=== PATIENT | female | born 1940 | race Caucasian/White ===

== ENCOUNTER → 2017-10-10 | Outpatient (CLI) | payer OTHER ==
[~2017-10-10] MED LIST: ACID REDUCER20 MG PO; ADVIL PM CAPLE1 EACH PO; ALEVE220 M1 PO; ARTHROTEC EC 51 EACH PO; ASPIRIN325 PO; ATENOLOL 50MG T50 M1 PO; CETERIZINE PO; COUMADIN7.5 MG PO; DICLOFENAC SOD50 MG PO; DILTIAZEM ER180 M1 PO; FISH OIL 1,001000 M2 PO; FLECAINIDE ACET50 M1 PO; LORATIDINE 10 M10 M1 PO; MELATONIN3 MG PO; MELATONIN5 M1 PO; MISOPROSTOL 2200 MC1 PO; NABUMETONE 500500 M1 PO; NABUMETONE 750750 M1 PO; NASONEX17 GM NS; PROBIOTIC1 EAC1 PO; SINGULAIR 10 MG10 M1 PO; STOOL SOFTENER1 EAC2 PO; TRAMADOL 50 MG50 MG PO
--- NOTE | ~2017-10-10 | 2DMMODE ---
[facility] [address] [place] [address] 2 D/M-MODE ECHOCARDIOGRAM Name: JENY REDMOND Slick Room #: REG [facility]#: [id number] Admission: 10/10/17 Attend Phys: Ariel Love Discharge: Date of : 44 Date of Service: 10/10/17 1227 Report #: [id number] THIS REPORT FOR: //name// APPROVED REPORT Study performed: 10/10/2017 11:05:55 EXAM: Comprehensive 2D, Doppler, and color-flow Echocardiogram Patient Location: Echo lab, outpatient Status: routine BSA: 1.95 HR: 84 bpm BP: 128/86 mmHg Rhythm: NSR Other Information Study Quality: Good Indications Atrial Fibrillation Pacemaker 2D Dimensions LVEF(%): 45.00 (>50%) IVSd: 11.96 (7-11mm) LVOT Diam: 18.73 (18-24mm) LVDd: 43.37 mm PWd: 12.06 (7-11mm) Ascending Ao: 31.92 (22-36mm) LVDs: 34.14 (25-40mm) Left Atrium: 39.07 (27-40mm) Aortic Root: 28.33 mm LV Single Plane 4CH: 45.88 % LV Single Plane 2CH: 46.03 % Cameron's LVEF: 45.96 % Biplane EF: 46.3 % Volumes Left Atrial Volume (Systole) Single Plane 4CH: 44.03 mL Single Plane 2CH: 45.60 mL LA ESV Index: 26.00 mL/m2 Aortic Valve AoV Peak Clay.: 1.35 m/s AO Peak Gr.: 7.60 mmHg LVOT Max P.24 mmHg LVOT Max V: 0.90 m/s ARLEEN Vmax: 1.83 cm2 [facility] [employer] [place] [address] 2 D/M-MODE ECHOCARDIOGRAM Name: JENY REDMOND [id number] Admission: 10/10/17 [facility]end [facility]: [facility] Dis[facility]: Date of : 44 Date of Service: 10/10/17 1227 Report #: [id number] Mitral Valve E/A Ratio: 0.9 MV Decel. Time: 284.25 ms MV E Max Clay.: 0.69 m/s MV A Clay.: 0.74 m/s MV PHT: 82.43 ms IVRT: 55.36 ms TDI E/Lateral E': 17.25 E/Medial E': 23.00 Medial E' Clay.: 0.03 m/s Lateral E' Clay.: 0.04 m/s Pulmonary Valve PV Peak Clay.: 0.80 m/s PV Peak Gr.: 2.56 mmHg Pulmonary Vein P Vein S: 0.50 m/s P Vein A: 0.22 m/s P Vein D: 0.37 m/s P Vein A Dur.: 143.0 msec P Vein S/D Ratio: 1.35 Tricuspid Valve TR Peak Clay.: 2.38 m/s RAP Estimate: 7.00 mmHg TR Peak Gr.: 22.74 mmHg PA Pressure: 30.00 mmHg Left Ventricle The left ventricle is normal size. There is normal LV segmental wall motion. Mild concentric left ventricular hypertrophy. Left ventricular systolic function is at lower limits of normal LVEF is 45-50%. Discordant septal motion probably from RV pacing Grade I - abnormal relaxation pattern. Right Ventricle The right ventricle is normal size. The right ventricular systolic function is normal. Atria The left atrium size is normal. The right atrium size is normal. Aortic Valve The aortic valve is normal in structure. Trace aortic regurgitation. There is no aortic valvular stenosis. [facility] [address] [place] [address] 2 D/M-MODE ECHOCARDIOGRAM Name: JENY REDMOND Room #: REG [facility]#: [id number] Admission: 10/10/17 Attend Phys: Ariel Love Discharge: Date of : 44 Date of Service: 10/10/17 1227 Report #: [id number] Mitral Valve The mitral valve is normal in structure. Mild mitral regurgitation. No evidence of mitral valve stenosis. Tricuspid Valve The tricuspid valve is normal in structure. Moderate tricuspid regurgitation. Pulmonary artery pressure is 30 mmHg. Pulmonic Valve The pulmonary valve is normal in structure. Trace pulmonic regurgitation. Great Vessels The aortic root is normal in size. IVC is normal in size and collapses with >50% inspiration Pericardium There is no pericardial effusion. <Conclusion> Left ventricular systolic function is at lower limits of normal LVEF is 45-50%. Discordant septal motion probably from RV pacing Grade I diastolic dysfunction The aortic valve is normal in structure, no stenosis. Trace aortic regurgitation. The mitral valve is normal in structure. Mild mitral regurgitation. Moderate tricuspid regurgitation. Pulmonary artery pressure is 30 mmHg. There is no pericardial effusion. <ELECTRONICALLY SIGNED> By: Ty Choi MD, FACC 10/10/171226 26 26 yT Choi MD, FACC /INF
== END ==
LOC: CV 07:55
DX: I08.1 Rheumatic disorders of both mitral and tricuspid valves (principal); I48.91 Unspecified atrial fibrillation; Z95.0 Presence of cardiac pacemaker

== ENCOUNTER → 2018-01-19 | Outpatient (CLI) | payer OTHER ==
[~2018-01-19] VITALS: Ht 165.1 cm; Wt 92.4 kg
--- NOTE | ~2018-01-19 | HPC ---
[facility] [address] [place] [address] PAIN MANAGEMENT CONSULTATION Name: JENY REDMOND [id number] Admission: 01/19/18 Attend Phys: Florentin Nava MD Discharge: Date of : 44 Report #: [id number] THIS REPORT FOR: //name// CC: Florentin Gilbert MD DATE OF SERVICE: 01/19/2018 Followup visit for spinal stenosis L4-L5, L5-S1 and lumbar radiculopathy. The patient returns to pain clinic today in followup. Last seen in September. She receives an intermittent epidural injections receiving no more than 3 injections per year over the last 3-4 years for her spinal generated pain. Today, she reports pain is a bit more into the left hip and leg. Description, however, sounds much more like arthritis. She has pain radiating into the groin. She has pain with internal and external rotation. Has pain lying flat on her back or on her left side. X-rays are reviewed. No hip films are available, but she does have severe spinal stenosis at L3-L4 and L4-L5 with foraminal narrowing. There is a disk extrusion at L2-L3 as well with possible mass effect on the L3 nerve root within the thecal sac on the left, which could provide some symptoms consistent with her groin pain. PQRS review shows that she does have osteoarthritis symptoms and a history of arthritis of the hands. She does not utilize opioid medication and has therefore not completed our protocol. She uses nonsteroidal anti-inflammatory drugs for pain, which were discussed below. MEDICATIONS: Reviewed and reconciled including recent changes. ALLERGIES: TO PROCAINE AND PENICILLIN. She is not a fall risk and has not fallen in the last 3 months. She is not on blood thinner. She does have a pacemaker and cannot have an MRI. SOCIAL HISTORY: She denies use of tobacco and alcohol. PHYSICAL EXAMINATION: VITAL SIGNS: Blood pressure is 149/75, heart rate is 72. She independently moves from sitting to standing position. She can do so without using her arms to push. CARDIAC: Regular. CHEST: Clear. MUSCULOSKELETAL: Spine is nontender. Some pain with forward flexion and [facility] [address] [place] [address] PAIN MANAGEMENT CONSULTATION Name: JENY REDMOND Room #: REG [facility].#: [id number] Admission: 01/19/18 Attend Phys: Florentin Nava MD Discharge: Date of : 44 Report #: [id number] extension. Examination of the hips reveals good range of motion on the right without pain. Both internal and external rotation and hip flexion on the left reproduces symptoms radiating into the groin and the gluteal region. Straight leg raising also reproduces radicular symptoms into the ipsilateral leg on each side. Sensation is intact. Strength is 5+/5 bilaterally in the lower extremities throughout. Deep tendon reflexes are absent in knees and ankles. IMPRESSION: 1. Lumbar radiculopathy secondary to spinal stenosis and degenerative disk disease at multiple levels. 2. Probable osteoarthritis of the left hip. Spot films in the x-ray room today confirmed some spurring. If pain worsens, she should be followed up by an orthopedic surgeon. PROCEDURE: Lumbar epidural injection under fluoroscopic guidance. PROCEDURE NOTE: She was taken to fluoroscopic suite, placed prone, skin prepped with ChloraPrep. Skin anesthetized over the L4-L5 interspace. A 20-gauge Tuohy epidural needle advanced in the epidural space with loss of resistance. There was no blood or CSF aspirated. 1 mL of Omnipaque injected. Good spread of dye observed followed by 3 mL of 0.5% lidocaine mixed with 80 mg of triamcinolone. She tolerated the procedure well and was observed for 45 minutes and discharged. Follow up as needed. By: 1240 [id number] Florentin Nava MD /nt
[2018-01-19 10:36] VITALS: BP 140/80
== END | disposition home or self-care (01) ==
LOC: PAIN 07:19
DX: M54.16 Radiculopathy, lumbar region (principal); M48.061 Spinal stenosis, lumbar region without neurogenic claudication; M16.12 Unilateral primary osteoarthritis, left hip; Z88.8 Allergy status to other drugs, medicaments and biological substances; Z88.0 Allergy status to penicillin

== ENCOUNTER → 2018-03-17 | Outpatient (CLI) | payer OTHER | LOC: RAD 13:18 → NUC 13:18 | DX: Z12.31 Encounter for screening mammogram for malignant neoplasm of breast (principal); M85.88 Other specified disorders of bone density and structure, other site; Z78.0 Asymptomatic menopausal state ==

== ENCOUNTER → 2018-05-08 | Outpatient (CLI) | payer OTHER ==
[2018-05-08 09:59] LABS: APTT 25.4 Seconds (24.5-32.8); PROTIME 9.6 Seconds (9.3-11.4)
== END | disposition home or self-care (01) ==
LOC: RAD 08:14
PROVIDERS: Radiology Diagnostic Radiology
DX: M48.061 Spinal stenosis, lumbar region without neurogenic claudication (principal); Z79.899 Other long term (current) drug therapy; Z98.890 Other specified postprocedural states; Z88.0 Allergy status to penicillin

== ENCOUNTER → 2019-03-09 | Outpatient (CLI) | payer OTHER | LOC: RAD 13:31 | DX: Z01.818 Encounter for other preprocedural examination (principal); I51.7 Cardiomegaly; Z95.0 Presence of cardiac pacemaker ==

== ENCOUNTER → 2019-04-06 | Outpatient (CLI) | payer OTHER ==
[~2019-04-06] VITALS: Ht 160 cm; Wt 92.1 kg
[~2019-04-06] MED LIST changes: +ASA5UEC PO; +ELIQUIS5 MG PO; +FLONASE 0.05%50 MCG NASAL; +NEURONTIN 300300 M1 PO
[2019-04-06 07:16] VITALS: BP 135/72
[2019-04-06 08:22] LABS: HEMATOCRIT 38.9 % (37.0-47.0); MCH 29.8 pg (26.0-34.0); MCHC 33.3 g/dL (28.0-37.0); MCV 89.2 fL (80.0-100.0); RBC 4.36 mil/uL (4.20-5.00); RDW 13.5 % (10.5-14.5); WBC 4.1 thou/uL (4.0-11.0)
[2019-04-06 08:30] LABS: ANION GAP 9 mmol/L (7-16); BUN 23 mg/dL (7-18); CALCIUM 9.7 mg/dL (8.5-10.1); CHLORIDE 106 mmol/L (98-107); CO2 26 mmol/L (21-32); CREATININE 1.3 mg/dL (0.6-1.0); GLUCOSE 108 mg/dL (74-106); POTASSIUM 4.1 mmol/L (3.5-5.1); SODIUM 141 mmol/L (136-145)
[2019-04-06 08:36] LABS: CHOLESTEROL 234 mg/dL (<200); HDL CHOLESTEROL 54 mg/dL (>40); LDL CHOLESTEROL 163 mg/dL (<100); TC:HDL 4.3 Ratio (Not establshd); TRIGLYCERIDE 87 mg/dL (<150); VLDL 17 mg/dL (<40)
--- NOTE | 2019-04-06 17:10 | CATHLAB ---
[facility] [place] [place] [address] INVASIVE PROCEDURE REPORT Name: JENY REDMOND Room #: REG [facility]#: [id number] ������������� Admission: 04/06/19 ������������� Attend Phys: Andrea Ortiz MD Discharge: ��� ������������� ��� Date of : 44 Date of Service: 04/06/19 1710 �� Report #: [id number] �������� ��������������������������������������������[id number] THIS REPORT FOR: //name// APPROVED REPORT Study performed: 04/06/2019 09:52:35 Patient Details The patient is a 78 year-old female Event Personnel Andrea Ortiz Compliance Technician, Neri Owusu RN RN, Roxana Pollock RN RN, Dieter Dye RTLamine Lining Parts Sewer, Lennie Keenan CARGO SUPERVISOR Scrub, Evie Bennett Monitor Procedures Performed Left Heart Cath w/or w/o Coronaries [id number] [facility] Indication Positive stress test, Pre-op clearance Risk Factors Hypercholesterolemia, Hypertension Procedure Narrative The Right Groin^ was infiltrated with subcutaneous anesthesia. A PINNACLE 4FR Sheath #[id number] sheath was inserted into the RFA^. Coronary angiography was performed using coronary diagnostic catheters. The right coronary system was accessed and visualized with a JR4 catheter. The left coronary system was accessed and visualized with a JL4 catheter. The left ventricle was accessed and visualized with a PIGTAIL catheter. Hemostasis was obtained with manual pressure following sheath removal without any complications. The patient tolerated the procedure well and there were no complications associated with the procedure. There was no hematoma. Intraoperative Conscious Sedation Sedation start time: 946 Case end Time: 1007 Fentanyl 100 mcg Versed 2 mg Fluoro Time: 1.90 minutes Dose: DAP 4230.00 cGycm2 691 mGy Contrast Type and Amount: Omnipaque [address] [facility] [place] [address] INVASIVE PROCEDURE REPORT Name: JENY REDMOND Room #: REG [facility]#: [id number] ������������� Admission: 04/06/19 ������������� Attend Phys: Andrea Ortiz MD Discharge: ��� ������������� ��� Date of : 44 Date of Service: 04/06/19 1710 �� Report #: [id number] �������� ��������������������������������������������[id number] Coronary Angiography The patient's coronary anatomy is co- dominant. Diagnostic Cath Left Main This is a patent vessel, with no flow-limiting lesions. LAD This is a moderate size caliber vessel, traversing the anterior wall and wrapping around the apex. There is mild disease in the proximal segment, 20%. Diagonal 1 This is a patent vessel, with no flow-limiting lesions. Circumflex This is a codominant vessel, patent with no flow-limiting lesions. OM1 This is a patent vessel, with no flow-limiting lesions. OM2 This is a patent vessel, with no flow-limiting lesions. Right Coronary This is a patent vessel, with no flow-limiting lesions. R PDA This is a patent vessel, with no flow-limiting lesions. Left Ventriculography The left ventricle is normal in size with decreased contractility. The left ventricular ejection fraction is estimated to be 45%. Hemodynamics The aortic pressure is 134/74 mmHg with a mean of mmHg. The left ventricular pressure is 133/12 mmHg with a mean of mmHg. The left ventricular end diastolic pressure is 16 mmHg. Conclusion 1. Mild disease in the LAD. 2. Mild cardiomyopathy. 3. Recommend aggressive risk factor management. ��������������������������������������������� <ELECTRONICALLY SIGNED> ���������������������������������������� By: Andrea Ortiz MD ��������������������������������������������� 04/06/191709 09 09 Andrea Ortiz MD /INF
--- NOTE | 2019-04-07 08:10 | EKG ---
[place] [address] [facility] [place] [address] ELECTROCARDIOGRAM REPORT Name: JENY REDMOND Room #: REG CLI [facility]#: [id number] ������������������ Admission: 04/06/19 ������������������ Attend Phys: Andrea Ortiz MD Discharge: ������������������ Date of : 44 Report #: [id number] ����������������������������������������������������������������� [id number] THIS REPORT FOR: //name// [facility] Test Date: 2019-04-06 Test Time: 08:16:39 Pat Name: JENY REDMOND Department: Room: Gender: F Healthcare Analyst: FABIANA : 1940 Requested By: Andrea Ortiz Order Number: [id number] MD: Ty Choi Measurements Intervals [place] Rate: 65 P: CO: 168 QRS: -30 QRSD: 157 T: 71 QT: 464 QTc: 483 Interpretive Statements Atrial-paced complexes Left bundle branch block Compared to ECG 10/29/2008 07:05:08 Left bundle-branch block now present Electronically Signed On 04-07-2019 8:10:26 CDT by Ty Choi [email or web address] ��������������������������������������������� <ELECTRONICALLY SIGNED> ���������������������������������������� By: Ty Choi MD, [facility] ��������������������������������������������� 04/07/1910 5 5 Ty Choi MD, [facility] /EPI
== END | disposition home or self-care (01) ==
LOC: CATH 06:39
PROVIDERS: Internal Medicine Cardiovascular Disease
DX: I25.10 Atherosclerotic heart disease of native coronary artery without angina pectoris (principal); I42.9 Cardiomyopathy, unspecified; I10 Essential (primary) hypertension; E78.00 Pure hypercholesterolemia, unspecified; I48.91 Unspecified atrial fibrillation; Z82.49 Family history of ischemic heart disease and other diseases of the circulatory system; Z95.0 Presence of cardiac pacemaker; Z79.01 Long term (current) use of anticoagulants; Z79.899 Other long term (current) drug therapy; Z98.890 Other specified postprocedural states; Z88.0 Allergy status to penicillin; Z88.8 Allergy status to other drugs, medicaments and biological substances; Z79.82 Long term (current) use of aspirin

== ENCOUNTER → 2019-04-27 | Outpatient (CLI) | payer OTHER ==
--- NOTE | 2019-04-27 15:10 | 2DMMODE ---
[facility] [place] [address] 2 D/M-MODE ECHOCARDIOGRAM Name: JENY REDMONDN Room #: REG [facility]#: [id number] ������������� Admission: 04/27/19 ������������� Attend Phys: Ariel Love Discharge: ��� ������������� ��� Date of : 44 Date of Service: 04/27/19 1510 �� Report #: [id number] �������� ��������������������������������������������[id number] THIS REPORT FOR: //name// APPROVED REPORT Study performed: 04/27/2019 14:00:07 EXAM: Comprehensive 2D, Doppler, and color-flow Echocardiogram Patient Location: Out-Patient Status: routine BSA: 1.93 HR: 61 bpm BP: 124/70 mmHg Rhythm: NSR Other Information Study Quality: Good Indications Dyspnea Hx: Pacemaker, Afib. 2D Dimensions RVDd: 35.73 mm IVSd: 9.57 (7-11mm) LVOT Diam: 20.45 (18-24mm) LVDd: 48.30 mm PWd: 10.10 (7-11mm) Ascending Ao: 34.57 (22-36mm) LVDs: 39.91 (25-40mm) Aortic Root: 33.68 mm Volumes Left Atrial Volume (Systole) Single Plane 4CH: 60.70 mL Single Plane 2CH: 65.72 mL LA ESV Index: 54.00 mL/m2 Aortic Valve AoV Peak Clay.: 1.40 m/s AO Peak Gr.: 7.89 mmHg LVOT Max P.57 mmHg LVOT Max V: 0.80 m/s ARLEEN Vmax: 1.88 cm2 Mitral Valve E/A Ratio: 1.3 MV Decel. Time: 197.29 ms [facility] [address] [place] [address] 2 D/M-MODE ECHOCARDIOGRAM Name: JENY REDMOND Room #: REG [facility]#: [id number] ������������� Admission: 04/27/19 ������������� Attend Phys: Ariel Love Discharge: ��� ������������� ��� Date of : 44 Date of Service: 04/27/19 1510 �� Report #: [id number] �������� ��������������������������������������������[id number] MV E Max Clay.: 0.76 m/s MV A Clay.: 0.59 m/s MV PHT: 57.21 ms IVRT: 93.43 ms Pulmonary Valve PV Peak Clay.: 0.94 m/s PV Peak Gr.: 3.55 mmHg Pulmonary Vein P Vein S: 0.63 m/s P Vein D: 0.56 m/s P Vein S/D Ratio: 1.13 Tricuspid Valve TR Peak Clay.: 2.52 m/s RAP Estimate: 5.00 mmHg TR Peak Gr.: 25.44 mmHg PA Pressure: 30.00 mmHg Left Ventricle The left ventricle is normal size. There is normal left ventricular wall thickness. Left ventricular systolic function is mildly decreased. LVEF is 45%. Discordant septal motion possibly from RV pacing. Moderate diastolic dysfunction is present (pseudonormal filling). Right Ventricle The right ventricle is normal size. The right ventricular systolic function is normal. Pacemaker lead is present in the right ventricle. Atria The left and right atria measure at the upper limits of normal. Aortic Valve The aortic valve is normal in structure. Trace to mild aortic regurgitation. There is no aortic valvular stenosis. Mitral Valve The mitral valve is normal in structure. Moderate mitral regurgitation. Tricuspid Valve The tricuspid valve is normal in structure. Moderate tricuspid regurgitation. Estimated PAP is 30mmHg. Pulmonic Valve [facility] [address] [place] [address] 2 D/M-MODE ECHOCARDIOGRAM Name: JENY REDMOND Room #: REG [facility]#: [id number] ������������� Admission: 04/27/19 ������������� Attend Phys: Ariel Love Discharge: ��� ������������� ��� Date of : 44 Date of Service: 04/27/19 1510 �� Report #: [id number] �������� ��������������������������������������������[id number] The pulmonary valve is normal in structure. Mild pulmonic regurgitation. Great Vessels The aortic root is normal in size. The ascending aorta is normal in size. IVC is normal in size and collapses >50% with inspiration. Pericardium Trace anterior pericardial effusion. <Conclusion> Left ventricular systolic function is mildly decreased. LVEF is 45%. Discordant septal motion possibly from RV pacing. Moderate diastolic dysfunction. The aortic valve is normal in structure. Trace to mild aortic regurgitation, no stenosis. The mitral valve is normal in structure. Moderate mitral regurgitation. Moderate tricuspid regurgitation. Estimated pulmonary artery pressure of 30mmHg. Trace anterior pericardial effusion. ��������������������������������������������� <ELECTRONICALLY SIGNED> ���������������������������������������� By: Ty Choi MD, [facility] ��������������������������������������������� 04/27/191509 09 09 Ty Choi MD, [facility] /INF
== END ==
LOC: CV 11:25
DX: I08.8 Other rheumatic multiple valve diseases (principal); I48.91 Unspecified atrial fibrillation; Z95.0 Presence of cardiac pacemaker

== ENCOUNTER → 2019-07-19 | Outpatient (CLI) | payer OTHER ==
[~2019-07-19] VITALS: Ht 160 cm; Wt 89.8 kg
[2019-07-19 10:01] VITALS: BP 125/75
[2019-07-19 10:17] LABS: BASOPHILS 0.9 % (0.0-2.0); EOSINOPHILS 3.4 % (0.0-3.0); HEMATOCRIT 41.6 % (37.0-47.0); HEMOGLOBIN 13.6 gm/dL (12.0-15.0); LYMPHOCYTES 46.2 % (24.0-44.0); MCH 29.7 pg (26.0-34.0); MCHC 32.7 g/dL (28.0-37.0); MCV 90.9 fL (80.0-100.0); MONOCYTES 9.6 % (1.0-8.0); PLATELET COUNT 214 thou/uL (150-400); POLYS 39.9 % (36.0-66.0); RBC 4.58 mil/uL (4.20-5.00); RDW 13.9 % (10.5-14.5); WBC 5.1 thou/uL (4.0-11.0)
[2019-07-19 10:20] LABS: CALCIUM 10.2 mg/dL (8.5-10.1); CREATININE 1.4 mg/dL (0.6-1.0); POTASSIUM 4.5 mmol/L (3.5-5.1)
[2019-07-19 10:26] LABS: ALBUMIN 3.5 g/dL (3.4-5.0); APTT 25.7 Seconds (24.5-32.8); PROTIME 9.8 Seconds (9.3-11.4); TOTAL BILIRUBIN 0.4 mg/dL (<0.1-1.0); TOTAL PROTEIN 7.2 g/dL (6.4-8.2)
--- NOTE | 2019-07-27 15:55 | P ---
[facility] [address] [place] [address] PROCEDURE REPORT Name: JENY REDMOND Room #: REG [facility]#: [id number] Admission: 07/19/19 Attend Phys: Ariel Love MD Discharge: Date of : 44 Report #: [id number] THIS REPORT FOR: //name// CC: Ariel Gilbert PACEMAKER GENERATOR EXCHANGE PREOPERATIVE DIAGNOSIS: Pacemaker elective replacement indicator. POSTOPERATIVE DIAGNOSIS: Pacemaker elective replacement indicator. HISTORY: The patient is a 78-year-old status post pacemaker implantation, who is here for pacemaker generator exchange. ANESTHESIA: The patient underwent MAC anesthesia with no anesthesia related complications. DESCRIPTION OF PROCEDURE: The patient underwent informed consent. We discussed the details of the procedure including the risks, which include but not limited to bleeding, infection and need for possible lead revisions. She understood these risks and is willing to proceed. The patient was brought to EP laboratory in fasting and sedated state, prepped and draped in sterile fashion. She received IV antibiotics prior to initiation of the procedure. Next, I injected lidocaine at the incision site. Then, incision was made, chronic pocket was entered. The older device was disconnected from the leads and leads were tested and found to be functioning normally. The new device was connected and was tested and working normally. The device was placed in the pocket. Pocket was irrigated with vancomycin. The pocket was closed in 2 layers using 2-0 for the deep layer, 3-0 for the middle layer, and surgical glue for the outer skin layer. The patient awoke neurologically and hemodynamically intact. No complications and no significant bleeding. The explanted device was a Medtronic, model #ADDR01, serial [id number]. The newly implanted device was a Medtronic, model #W3DR01, serial #[id number]. The atrial lead was a Medtronic, model #5076, serial #[id number]. RV lead was a Medtronic, model #5076, serial #[id number]. These leads were implanted in 10/2008. The atrial lead demonstrated P-wave of 3.9 millivolts, pacing impedance 399 ohms and the pacing threshold 1 volt at 0.4 milliseconds. The RV lead demonstrated R-wave of 6.6 millivolts, pacing impedance of 437 ohms and pacing threshold 1.5 volts at 0.4 milliseconds. The device was programmed to the DDDR 60-130 mode. CONCLUSIONS: [facility] [address] [place] [place] [address] PROCEDURE REPORT Name: JENY REDMOND [facility] [id number] Admission: 07/19/19 Attend Phys: Ariel Love MD Discharge: Date of : 44 Report #: [id number] 1. Successful pacemaker generator exchange. 2. Satisfactory atrial and ventricular pacing and sensing thresholds. <ELECTRONICALLY SIGNED> By: Ariel Love MD 07/27/19 1555 0933 0048 Ariel Love MD /nt
== END | disposition home or self-care (01) ==
LOC: CATH 09:35
PROVIDERS: Internal Medicine Cardiovascular Disease
DX: Z45.010 Encounter for checking and testing of cardiac pacemaker pulse generator [battery] (principal); I48.91 Unspecified atrial fibrillation; I10 Essential (primary) hypertension; E78.5 Hyperlipidemia, unspecified; Z79.01 Long term (current) use of anticoagulants; Z79.899 Other long term (current) drug therapy; Z98.890 Other specified postprocedural states; Z88.0 Allergy status to penicillin; Z88.8 Allergy status to other drugs, medicaments and biological substances; Z82.49 Family history of ischemic heart disease and other diseases of the circulatory system
CPT/HCPCS: 62110; 62900; 70005

== ENCOUNTER → 2020-01-18 | Outpatient (CLI) | payer OTHER | LOC: SJCVC 11:05 | PROVIDERS: ATTEND Internal Medicine Cardiovascular Disease | DX: Z45.018 Encounter for adjustment and management of other part of cardiac pacemaker (principal); I49.3 Ventricular premature depolarization; I44.7 Left bundle-branch block, unspecified; R94.31 Abnormal electrocardiogram [ECG] [EKG]; I48.0 Paroxysmal atrial fibrillation; I48.3 Typical atrial flutter; I49.5 Sick sinus syndrome; I10 Essential (primary) hypertension; E78.5 Hyperlipidemia, unspecified; Z79.899 Other long term (current) drug therapy ==

== ENCOUNTER → 2020-03-21 | Outpatient (CLI) | payer OTHER | LOC: SJCVC 12:04 | PROVIDERS: ATTEND Internal Medicine Cardiovascular Disease | DX: Z45.018 Encounter for adjustment and management of other part of cardiac pacemaker (principal); I49.3 Ventricular premature depolarization; I44.7 Left bundle-branch block, unspecified; R94.31 Abnormal electrocardiogram [ECG] [EKG]; I48.0 Paroxysmal atrial fibrillation; I49.5 Sick sinus syndrome; I48.3 Typical atrial flutter; Z79.899 Other long term (current) drug therapy ==

== ENCOUNTER → 2020-06-13 | Outpatient (CLI) | payer OTHER | LOC: NUC 10:03 | PROVIDERS: ATTEND Neuromusculoskeletal Medicine & OMM | DX: M81.0 Age-related osteoporosis without current pathological fracture (principal); M85.88 Other specified disorders of bone density and structure, other site ==

== ENCOUNTER → 2020-10-17 | Outpatient (CLI) | payer OTHER | LOC: LAB 12:19 | PROVIDERS: ATTEND Nurse Practitioner | DX: U07.1 COVID-19 (principal) ==

== ENCOUNTER → 2020-12-19 | Outpatient (CLI) | payer OTHER | LOC: SJCVC 11:16 | PROVIDERS: ATTEND Internal Medicine Cardiovascular Disease | DX: R94.31 Abnormal electrocardiogram [ECG] [EKG] (principal); I44.7 Left bundle-branch block, unspecified; I48.0 Paroxysmal atrial fibrillation; I49.5 Sick sinus syndrome; I10 Essential (primary) hypertension; E78.5 Hyperlipidemia, unspecified; K21.9 Gastro-esophageal reflux disease without esophagitis; Z79.899 Other long term (current) drug therapy; Z72.89 Other problems related to lifestyle; Z95.0 Presence of cardiac pacemaker; Z88.0 Allergy status to penicillin; Z88.8 Allergy status to other drugs, medicaments and biological substances ==